=== PATIENT | female | born 1995 | race Hispanic/Latino ===

== ENCOUNTER 2017-04-17 10:27 | Emergency (ER) | payer OTHER ==
--- NOTE | 2017-04-17 11:59 | Emergency Department Report ---
Entered by CRISTOBAL HEALY, acting as scribe for LEIGHTON HIGUERA NP. Chief Complaint: Vaginal Bleeding Stated Complaint: VAGINAL BLEED/12WKS PREG Time Seen by Provider: 04/17/17 11:49 - HPI History of Present Illness: 21 y/o female presents with vaginal bleeding and severe abd cramping that started this morning and notes that she felt like she had to void. Pt notes she is 12 weeks . chief client officer - Dr Senait Peerira - LOR Review of Systems: + vaginal bleeding, severe abd cramping + low back pain - Exam Vital Signs: Vital Signs 04/17/17 10:49 Temperature 98.2 F Pulse Rate 95 H Respiratory 20 Rate Blood Pressure 125/92 O2 Sat by Pulse 98 Oximetry Physical Exam: PT tearful, non toxic no focal weakness noted exam not performed in triage MSE screening note: Focused history and physical exam performed. Due to findings the following was ordered: labs, us ED Disposition for MSE Condition: Stable This documentation as recorded by the scribe,CRISTOBAL HEALY,accurately reflects the service I personally performed and the decisions made by KALEN varma TRACY M , FADY.
[2017-04-17 12:27] LABS: Basophils % (Auto) 0.1 % (0.0-1.8); Eosinophils % (Auto) 0.3 % (0.0-4.3); Hematocrit 40.1 % (30.3-42.9); Hemoglobin 13.6 gm/dl (10.1-14.3); Mean Corpuscular HGB Conc 34 % (30-34); Mean Corpuscular Hemoglobin 32 pg (28-32); Mean Corpuscular Volume 94 fl (79-97); Platelet Count 322 K/mm3 (140-440); Red Blood Count 4.27 M/mm3 (3.65-5.03); Red Cell Distribution Width 12.9 % (13.2-15.2); White Blood Count 12.1 K/mm3 (4.5-11.0)
[2017-04-17 12:37] LABS: INR 0.94 (0.87-1.13)
[2017-04-17 12:38] LABS: Partial Thromboplastin Time 28.6 Sec. (24.2-36.6)
[2017-04-17 12:47] LABS: Alanine Aminotransferase 22 units/L (7-56); Albumin 4.3 g/dL (3.9-5); Albumin/Globulin Ratio 1.3 %; Alkaline Phosphatase 44 units/L (35-129); Anion Gap 18 mmol/L; BUN/Creatinine Ratio 8.33; Blood Urea Nitrogen 5 mg/dL (7-17); Calcium 9.4 mg/dL (8.4-10.2); Carbon Dioxide 24 mmol/L (22-30); Chloride 100.1 mmol/L (98-107); Glucose 90 mg/dL (65-100); Potassium 4.2 mmol/L (3.6-5.0); Sodium 138 mmol/L (137-145); Total Protein 7.5 g/dL (6.3-8.2)
--- NOTE | 2017-04-17 14:28 | Ultrasound Report ---
ULTRASOUND OB LESS THAN 14 WEEKS - TRANSABDOMINAL AND TRANSVAGINAL INDICATION: Pain, vaginal bleeding. Serum beta-hCG 2,787 units. COMPARISON: None similar at this institution. FINDINGS: Transabdominal and transvaginal pelvic sonography performed in this patient with LMP of 01/23/2017 and estimated menstrual age of 12 weeks and 0 days. A 10.7 x 7.4 x 8 cm uterus appears retroverted endovaginally and demonstrates a single intrauterine gestation. No heart tones though obtained. Mean crown-rump length of 1.72 cm corresponds to 8 weeks and 1 day. Minimal pelvic free fluid may be present toward the uterine fundus. Unremarkable 2.7 x 1.9 x 3.1 cm right ovary. Left ovary is 3.3 x 2 x 3.2 cm with a 1.6 cm complex/thick walled intrinsic cyst/possible corpus luteum, endovaginal image 23. CONCLUSION: 1. Sonographic findings worrisome for an intrauterine demise with ultrasound estimated age of 8 weeks and 1 day. Please also correlate clinically for a little under 4 weeks discrepancy with the estimated menstrual age. 2. Both ovaries identified, as described above. SORTER UPHOLSTERY PARTS correlation and with serial serum beta-hCG values may be obtained, as warranted. Thank you for the opportunity to participate in this patient's care.
[2017-04-17 18:30] VITALS: BP 126/78
--- NOTE | 2017-04-17 18:30 | Emergency Department Report ---
ED HPI - General Chief complaint: Vaginal Bleeding Stated complaint: VAGINAL BLEED/12WKS PREG Time Seen by Provider: 04/17/17 17:54 Source: patient, RN notes reviewed Mode of arrival: Ambulatory Limitations: No Limitations - History of Present Illness Initial comments: This is a 21-year-old female. She is previously unknown speed. She is 2, para 1. CONTRACT NEGOTIATION SPECIALIST physician: Dr. Dyan Meade Past medical history: Psoriasis, scleroderma, undifferentiated rheumatologic condition (she reports she does not have lupus, and she reports that her soil expert is "trying to figure it out.") The patient presents to the ER with vaginal bleeding and cramping. She reports her last menstrual period was beginning of January. She thinks that she is 12 weeks . She reports that she has vaginal bleeding. Denies headache, neck pain, chest pain, shortness of breath. She denies irritative and obstructive urinary symptoms. She has an appointment tomorrow to follow up at [facility]- [facility]. No recent trauma. MD Complaint: abdominal pain, vaginal bleeding -: Gradual Radiation: suprapubic Severity: mild Quality: cramping Consistency: constant Improves with: rest Worsens with: movement Associated symptoms: vaginal bleeding, abdominal pain. denies: nausea/vomiting , vaginal discharge, dysuria, headache, vision changes, dysparuenia, shortness of breath, syncope, weakness Vaginal bleeding: light :: Yes OB History - Current : no complications Pre-fozia care: followed by OB - Related Data Allergies Allergy/AdvReac Type Severity Reaction Status Date / Time No Known Allergies Allergy Unverified 04/17/17 10:52 ED Review of Systems ROS: Stated complaint: VAGINAL BLEED/12WKS PREG Other details as noted in HPI Constitutional: denies: fever, malaise Eyes: denies: vision change ENT: denies: epistaxis Respiratory: denies: cough Cardiovascular: denies: chest pain Gastrointestinal: abdominal pain. denies: nausea, vomiting Genitourinary: abnormal menses. denies: urgency, dysuria Musculoskeletal: denies: back pain Skin: denies: rash, lesions Neurological: denies: headache, weakness Psychiatric: anxiety ED Past Medical Hx - Past Medical History Previous Medical History?: Yes Additional medical history: Vaginal delivery 04-01-2012 - Surgical History Past Surgical History?: No - Social History Smoking Status: Current Every Day Smoker Substance Use Type: Non Opiate Pain, Prescribed ED Physical Exam - General Limitations: No Limitations General appearance: alert, in no apparent distress - Head Head exam: Present: atraumatic, normocephalic - Eye Eye exam: Present: normal appearance, EOMI. Absent: nystagmus - ENT ENT exam: Present: normal exam, normal orophraynx, mucous membranes moist, normal external ear exam - Neck Neck exam: Present: normal inspection, full ROM. Absent: tenderness, meningismus - Respiratory Respiratory exam: Present: normal lung sounds bilaterally. Absent: respiratory distress, wheezes, rales, rhonchi, stridor, chest wall tenderness, accessory muscle use, decreased breath sounds, prolonged expiratory - Cardiovascular Cardiovascular Exam: Present: regular rate, normal rhythm, normal heart sounds. Absent: bradycardia, tachycardia, irregular rhythm, systolic murmur, diastolic murmur, rubs, gallop - GI/Abdominal GI/Abdominal exam: Present: soft, normal bowel sounds. Absent: distended, tenderness, guarding, rebound, rigid, pulsatile mass - External exam: Present: normal external exam Speculum exam: Present: normal speculum exam, vaginal bleeding, other (during the gynecologic examination, I am escorted by nursse Dary Shipley) Bi-manual exam: Present: other - Extremities Exam Extremities exam: Present: normal inspection, full ROM, normal capillary refill. Absent: tenderness, pedal edema, joint swelling, calf tenderness - Back Exam Back exam: Present: normal inspection, full ROM. Absent: tenderness, CVA tenderness (R), CVA tenderness (L), muscle spasm, paraspinal tenderness, vertebral tenderness - Neurological Exam Neurological exam: Present: alert, oriented X3, normal gait, other (Extraocular movements intact. Tongue midline. No facial droop. Facial sensation intact to light touch in the V1, V2, V3 distribution bilaterally. 5 and 5 strength in 4 extremities.. Sensation is intact to light touch in 4 extremities.). Absent : motor sensory deficit - Psychiatric Psychiatric exam: Present: normal affect, normal mood - Skin Skin exam: Present: warm, dry, intact, normal color. Absent: rash ED Course Vital Signs 04/17/17 04/17/17 10:49 18:29 Temperature 98.2 F 98.4 F Pulse Rate 95 H 82 Respiratory 20 16 Rate Blood Pressure 125/92 Blood Pressure 126/78 [Right] O2 Sat by Pulse 98 100 Oximetry - Reevaluation(s) Reevaluation #1: 04/17/17 18:32 patient given a copy of her ultrasound report, as well as her laboratory studies to present to outpatient gynecology. ED Medical Decision Making - Lab Data Result diagrams: 04/17/17 12:11 04/17/17 12:11 Vital Signs 04/17/17 04/17/17 10:49 18:29 Temperature 98.2 F 98.4 F Pulse Rate 95 H 82 Respiratory 20 16 Rate Blood Pressure 125/92 Blood Pressure 126/78 [Right] O2 Sat by Pulse 98 100 Oximetry Lab Results 04/17/17 04/17/17 04/17/17 Range/Units 12:11 12:11 12:11 WBC 12.1 H (4.5-11.0) K/mm3 RBC 4.27 (3.65-5.03) M/mm3 Hgb 13.6 (10.1-14.3) gm/dl Hct 40.1 (30.3-42.9) % MCV 94 (79-97) fl MCH 32 (28-32) pg MCHC 34 (30-34) % RDW 12.9 L (13.2-15.2) % Plt Count 322 (140-440) K/mm3 Lymph % (Auto) 25.6 (13.4-35.0) % [place] % (Auto) 4.0 (0.0-7.3) % Eos % (Auto) 0.3 (0.0-4.3) % Baso % (Auto) 0.1 (0.0-1.8) % Lymph # 3.1 (1.2-5.4) K/mm3 [place] # 0.5 (0.0-0.8) K/mm3 Eos # 0.0 (0.0-0.4) K/mm3 Baso # 0.0 (0.0-0.1) K/mm3 Seg Neutrophils % 70.0 (40.0-70.0) % Seg Neutrophils # 8.4 H (1.8-7.7) K/mm3 PT 12.5 (12.2-14.9) Sec. INR 0.94 (0.87-1.13) APTT 28.6 (24.2-36.6) Sec. Sodium (137-145) mmol/L Potassium (3.6-5.0) mmol/L Chloride (98-107) mmol/L Carbon Dioxide (22-30) mmol/L Anion Gap mmol/L BUN (7-17) mg/dL Creatinine (0.7-1.2) mg/dL Estimated GFR ml/min BUN/Creatinine Ratio % Glucose (65-100) mg/dL Calcium (8.4-10.2) mg/dL Total Bilirubin (0.1-1.2) mg/dL AST (5-40) units/L ALT (7-56) units/L Alkaline Phosphatase (35-129) units/L Total Protein (6.3-8.2) g/dL Albumin (3.9-5) g/dL Albumin/Globulin Ratio % HCG, Quant 2787 H (0-4) mIU/mL Blood Type Ord Rhogam Gestat Weeks WEEKS 04/17/17 04/17/17 Range/Units 12:11 12:11 WBC (4.5-11.0) K/mm3 RBC (3.65-5.03) M/mm3 Hgb (10.1-14.3) gm/dl Hct (30.3-42.9) % MCV (79-97) fl MCH (28-32) pg MCHC (30-34) % RDW (13.2-15.2) % Plt Count (140-440) K/mm3 Lymph % (Auto) (13.4-35.0) % [place] % (Auto) (0.0-7.3) % Eos % (Auto) (0.0-4.3) % Baso % (Auto) (0.0-1.8) % Lymph # (1.2-5.4) K/mm3 [place] # (0.0-0.8) K/mm3 Eos # (0.0-0.4) K/mm3 Baso # (0.0-0.1) K/mm3 Seg Neutrophils % (40.0-70.0) % Seg Neutrophils # (1.8-7.7) K/mm3 PT (12.2-14.9) Sec. INR (0.87-1.13) APTT (24.2-36.6) Sec. Sodium 138 (137-145) mmol/L Potassium 4.2 (3.6-5.0) mmol/L Chloride 100.1 (98-107) mmol/L Carbon Dioxide 24 (22-30) mmol/L Anion Gap 18 mmol/L BUN 5 L (7-17) mg/dL Creatinine 0.6 L (0.7-1.2) mg/dL Estimated GFR > 60 ml/min BUN/Creatinine Ratio 8.33 % Glucose 90 (65-100) mg/dL Calcium 9.4 (8.4-10.2) mg/dL Total Bilirubin 0.30 (0.1-1.2) mg/dL AST 19 (5-40) units/L ALT 22 (7-56) units/L Alkaline Phosphatase 44 (35-129) units/L Total Protein 7.5 (6.3-8.2) g/dL Albumin 4.3 (3.9-5) g/dL Albumin/Globulin Ratio 1.3 % HCG, Quant (0-4) mIU/mL Blood Type A POSITIVE Ord Rhogam Gestat Weeks Rh pos WEEKS - Radiology Data Radiology results: report reviewed, image reviewed Obstetrics ultrasound demonstrates multiple intrauterine demise, with a sonographic age of 8 weeks and 1 day. Ovaries identified. - Medical Decision Making Differential diagnosis: Miscarriage Assessment and plan: 21-year-old female who is going to follow-up tomorrow with high risk maternal- medicine, with probable and likely inevitable miscarriage. She does not endorse any irritative or obstructive urinary symptoms, she is Rh+, and she is hemodynamically stable. She is not endorsing urinary symptoms, and she states she will provide a urine sample tomorrow when she follows up with maternal- medicine. Patient instructed to avoid heavy lifting, and to avoid strenuous physical activity, and to follow-up with high risk maternal- medicine as well as her private creative recruiter. Critical care attestation.: If time is entered above; I have spent that time in minutes in the direct care of this critically ill patient, excluding procedure time. ED Disposition Clinical Impression: Miscarriage Disposition: DC-01 TO HOME OR SELFCARE Is pt being admited?: No Does the pt Need Aspirin: No Condition: Stable Instructions: Spontaneous Miscarriage (ED) Additional Instructions: Symptoms most likely coming from miscarriage. Rest and avoid heavy lifting. Avoid strenuous physical activity. Do not engage in sexual activity until cleared by an CONTRACT NEGOTIATION SPECIALIST doctor. Follow up with perinatology/high risk maternal- medicine within the next 24 hours as planned: [address] [place] [id number] (P) [phone] (F) [phone] Return to the ER right away with new pain, worsened pain, migration of pain, fevers, chills, confusion, chest pain, shortness of breath, intractable nausea or vomiting, inability to tolerate liquid feeds. Return to the ER right away with increasing bleeding, bleeding more than 2 pads soaked per hour, dizziness, lightheadedness. Referrals: DYAN MEADE MD [Primary Care Provider] - 3-5 Days
== END 2017-04-17 19:04 | disposition home or self-care (01) ==
LOC: ED 10:27
DX: O03.9 Complete or unspecified spontaneous abortion without complication (principal); F17.210 Nicotine dependence, cigarettes, uncomplicated; Z3A.12 12 weeks gestation of pregnancy
CPT/HCPCS: 36415; 76801; 76817; 80053; 84702; 85025; 85610; 85730; 86900; 86901; 99284